=== PATIENT | male | born 1975 | race Caucasian/White ===

== ENCOUNTER 2016-06-10 20:50 | Outpatient (CLI) | payer OTHER ==
[~2016-06-10 20:50] MED LIST: CIPR500T78 PO; DICY10CA12 PO; IBUP800T26 PO; OXYC-12 PO; TMSL.4C PO; TRAM50TA2 PO; ZOLP10TA5 PO
--- OUTSIDE RECORDS SUMMARY | 2016-06-10 21:59 | XMS REPORT | Continuity of Care Document ---
Author Author [facility] Organization [facility] Address Unknown Phone Unavailable Care Team Providers Care [employer] Name Role Phone JAZMINE ORTIZ DO PCP Insurance Providers Payer Name Policy Number Subscriber Name Relationship [employer] [facility] Ppo [id number] Shady Johnston 16 Self / Same As Patient Advance Directives Directive Response Recorded Date/Time Advance Directives No 01/13/14 3:30am Organ Donor No 01/13/14 3:30am Resuscitation Status Full Code 01/13/14 3:30am Problems Medical Problems Problem Onset Date Status Microscopic hematuria Unknown Active Abdominal pain Unknown Active Microscopic hematuria Unknown Active Medications Medication Dose Route Sig Days/Qty Instructions Order Date Discontinued Date Status Tramadol Hcl 1 Tab PO NEEDED 100 Qty 01/13/14 Active Dicyclomine Hcl 10 Mg PO EVERY 6 HOURS 240 Qty 01/13/14 Active Zolpidem Tartrate 1 Tab-Cap PO BEDTIME 30 Qty 01/13/14 Active Ciprofloxacin HCl 500 Mg PO TWICE A DAY 20 Qty 01/13/14 Active Ibuprofen (Motrin) 800 Mg PO q8h PRN PAIN 20 Qty 01/13/14 Active Oxycodone Hcl/Acetaminophen 1 Each PO EVERY 4HRS PRN PAIN 10 Qty Active Tamsulosin HCl 0.4 Mg PO DAILY 10 Qty 01/13/14 Active Social History Social History Problem Response Recorded Date/Time Alcohol Use Denies Use 01/13/2014 3:30am Recreational Drug Use No 01/13/2014 3:30am Recent Foreign Travel No 01/13/2014 3:30am Recent Infectious Disease Exposure No 01/13/2014 3:30am Smoking Status Never a Smoker 01/13/2014 3:30am Do you dip or chew tobacco? No 01/13/2014 3:30am Query Response Start Date Stop Date Smoking Status Never a Smoker Hospital Discharge Instructions No hospital discharge instructions. Plan of Care No plan of care. Functional Status No functional status results. Allergies, Adverse Reactions, Alerts Allergen Type Severity Reaction Status Last Updated No Known Drug Allergies Active 01/13/14 Immunizations No immunization records. Vital Signs Acute Vital Signs Vital Response Date/Time Temperature (Fahrenheit) 97.0 degrees F (97.6 - 99.5) Temperature (Calculated Celsius) 36.98574 degrees C (36.4 - 37.5) Temperature Source Temporal Pulse Rate (adult) 89 bpm (60 - 90) Respiratory Rate 18 bpm (12 - 24) O2 Sat by Pulse Oximetry 99 % (88 - 100) Blood Pressure 148/98 mm Hg Pain Pain Intensity 5 Height (Feet) 6 feet Height (Inches) 1 inches Height (Calculated Centimeters) 185.257017 cm Weight (Pounds) 240 pounds Weight (Calculated Kilograms) 108.913217 kilograms Calculated BMI 31.66 Results Test Source Date Result Interp. Ref. Range Comments Semen Volume January 02, 2007 8:15am 1.5 ML N 1.5-5.0 Sperm % Abnormal Morphology January 02, 2007 8:15am 33 % - Sperm % Normal Morphology January 02, 2007 8:15am 67 % - [employer] HAS REDEFINED WHAT THEYCONSIDER TO BE A NORMAL SPERMATOZOON AND SUBSEQUENTLY SET AN 'EMPERICAL REFERERENCE VALUE OF 30% NORMAL FORMS AND ABOVE NORMAL'; Sperm Count January 02, 2007 8:15am 215 MIL/ML H 60-200 Sperm Motility January 02, 2007 8:15am 78 % - NORMAL IS >60% DEMONSTRATING MEDIUM TO HIGH SPEED FORWARD MOTION. Procedures No known history of procedures. Encounters Encounter Location Date/Time Departed Emergency Room [facility] 01/13/14 3:22am Recent Diagnosis
== END 2016-06-11 07:00 | disposition home or self-care (01) ==
LOC: SLEEP 20:50
PROVIDERS: ATTEND Family Medicine
DX: G47.33 Obstructive sleep apnea (adult) (pediatric) (principal)
CPT/HCPCS: 95811

== ENCOUNTER 2016-12-21 10:52 | Emergency (ER) | payer OTHER ==
[~2016-12-21] VITALS: Ht 185.4 cm; Wt 124.7 kg
--- NOTE | 2016-12-21 11:16 | ED GU-Male ---
General Chief Complaint: -Male Stated Complaint: POSSIBLE KIDNEY STONE Source: patient Exam Limitations: no limitations (SALVATORE KRAMER MD) History of Present Illness Time seen by provider: 11:11 Initial Comments Here with onset of right flank and right lower quadrant abdominal pain this morning on the way to work. He tried to drink a lot of water and that didn't help. Reports he's had similar feeling with previous kidney stone. This is associated with sweating. Denies nausea or vomiting. Timing/Duration: yesterday, getting worse Severity/Quality: moderate, aching Location: right flank Radiation: RLQ, right flank, urethral Activities at Onset: none Sexual Winner History: single partner Modifying Factors: Improves With Other (unable to get comfortable in any position. No exacerbating or relieving factors.) Associated Symptoms: abdominal pain, dysuria, No fever/chills, No nausea/ vomiting (SALVATORE KRAMER MD) Allergies and Home Medications Allergies Coded Allergies: No Known Drug Allergies (Unverified , 01/13/14) Home Medications Ciprofloxacin HCl 500 Mg Tablet, 500 MG PO BID, #14 Ref 0 Prescribed by: ANNABEL MCLEAN on 12/21/16 1320 Hydrocodone/Acetaminophen 1 Each Tablet, 1 EACH PO Q4H PRN for pain, #20 Ref 0 Prescribed by: ANNABEL MCLEAN on 12/21/16 1320 Ondansetron 8 Mg Tab.rapdis, 8 MG PO Q6H PRN for NAUSEA/VOMITING-1ST LINE, #10 Ref 0 Prescribed by: ANNABEL MCLEAN on 12/21/16 1320 Phenazopyridine HCl 200 Mg Tablet, 1 TAB PO Q8H PRN for SPASMS, #14 Ref 0 Prescribed by: ANNABEL MCLEAN on 12/21/16 1320 Sertraline HCl 100 Mg Tablet, (Reported) Tamsulosin HCl 0.4 Mg Cap, 0.4 MG PO DAILY, #10 Ref 0 Prescribed by: ANNABEL MCLEAN on 12/21/16 1320 Tramadol Hcl 50 Mg Tab, 1 TAB PO PRN, #100 (Reported) Zolpidem Tartrate 10 Mg Tablet, 1 TAB-CAP PO HS, #30 (Reported) Constitutional: see HPI, diaphoresis, No weakness EENTM: no symptoms reported Respiratory: no symptoms reported Cardiovascular: no symptoms reported Gastrointestinal: see HPI, abdominal pain, No nausea, No vomiting Genitourinary: burning, dysuria, frequency Musculoskeletal: no symptoms reported Skin: no symptoms reported Psychiatric/Neurological: No Symptoms Reported (SALVATORE KRAMER MD) Past Rrbtuwp-[id number]-Hsohqz Hx Patient Social History Alcohol Use: Denies Use Recreational Drug Use: No Smoking Status: Never a Smoker Recent Foreign Travel: No Contact w/Someone Who Travel: No (SALVATORE KRAMER MD) Surgeries History of Surgeries: Yes Surgeries: Orthopedic (SALVATORE KRAMER MD) Respiratory History of Respiratory Disorde: No (SALVATORE KRAMER MD) Cardiovascular History of Cardiac Disorders: No (SALVATORE KRAMER MD) Neurological History of Neurological Disord: No (SALVATORE KRAMER MD) Genitourinary History of Genitourinary Disor: Yes Genitourinary Disorders: Kidney Stones (SALVATORE KRAMER MD) Gastrointestinal History of Gastrointestinal Di: No Gastrointestinal Disorders: Irritable Bowel (SALVATORE KRAMER MD) Musculoskeletal History of Musculoskeletal Dis: Yes Musculoskeletal Disorders: Back Injury (SALVATORE KRAMER MD) Cancer History of Cancer: No (SALVATORE KRAMER MD) Reviewed Nursing Assessment Reviewed/Agree w Nursing PMH: Yes (SALVATORE KRAMER MD) Physical Exam Vital Signs Vital Sign - Last 12Hours 12/21/16 11:03 Temp 99.0 Pulse 78 Resp 18 B/P (MAP) 176/101 (ANNABEL MCLEAN PA) Vital Signs Capillary Refill : (SALVATORE KRAMER MD) General Appearance: WD/WN, no apparent distress HEENT: PERRL/EOMI, pharynx normal Neck: full range of motion, supple Cardiovascular: regular rate, rhythm, no murmur Respiratory: lungs clear, normal breath sounds Gastrointestinal: soft, tenderness (mild right flank and right lower quadrant) Back: no vertebral tenderness, CVA tenderness (R), No CVA tenderness (L) Neurologic/Psychiatric: alert, oriented x 3 Skin: normal color, warm/dry (SALVATORE KRAMER MD) Progress/Results/Core Measures Results/Orders Lab Results Laboratory Tests Test 12/21/16 11:03 12/21/16 11:17 Range/Units Urine Color YELLOW Urine Clarity SLIGHTLY CLOUDY Urine pH 5 5-9 Urine Specific [place] 1.030 H 1.016-1.022 Urine Protein 2+ H NEGATIVE Urine Glucose (UA) NEGATIVE NEGATIVE Urine Ketones NEGATIVE NEGATIVE Urine Nitrite NEGATIVE NEGATIVE Urine Bilirubin 1+ H NEGATIVE Urine Urobilinogen 1 NORMAL MG/DL Urine Leukocyte Esterase 1+ H NEGATIVE Urine RBC (Auto) 1+ H NEGATIVE Urine RBC 0-2 /HPF Urine WBC RARE /HPF Urine Crystals PRESENT H /LPF Urine Amorphous Sediment MOD TAMIE URATES H /LPF Urine Bacteria NEGATIVE /HPF Urine Casts NONE /LPF Urine Mucus NEGATIVE /LPF Urine Culture Indicated NO White Blood Count 14.1 H 4.3-11.0 10^3/uL Red Blood Count 5.26 4.35-5.85 10^6/uL Hemoglobin 14.2 13.3-17.7 G/DL Hematocrit 43 40-54 % Mean Corpuscular Volume 82 80-99 FL Mean Corpuscular Hemoglobin 27 25-34 PG Mean Corpuscular Hemoglobin Concent 33 32-36 G/DL Red Cell Distribution Width 13.9 10.0-14.5 % Platelet Count 315 130-400 10^3/uL Mean Platelet Volume 10.9 H 7.4-10.4 FL Neutrophils (%) (Auto) 83 H 42-75 % Lymphocytes (%) (Auto) 11 L 12-44 % Monocytes (%) (Auto) 6 0-12 % Eosinophils (%) (Auto) 0 0-10 % Basophils (%) (Auto) 0 0-10 % Neutrophils # (Auto) 11.7 H 1.8-7.8 X 10^3 Lymphocytes # (Auto) 1.6 1.0-4.0 X 10^3 Monocytes # (Auto) 0.8 0.0-1.0 X 10^3 Eosinophils # (Auto) 0.1 0.0-0.3 10^3/uL Basophils # (Auto) 0.0 0.0-0.1 10^3/uL Neutrophils % (Manual) 84 % Lymphocytes % (Manual) 12 % Monocytes % (Manual) 2 % Eosinophils % (Manual) 0 % Basophils % (Manual) 0 % Band Neutrophils 2 % Blood Morphology Comment NORMAL Sodium Level 144 135-145 MMOL/L Potassium Level 3.5 L 3.6-5.0 MMOL/L Chloride Level 108 H 98-107 MMOL/L Carbon Dioxide Level 23 21-32 MMOL/L Anion Gap 13 5-14 MMOL/L Blood Urea Nitrogen 9 7-18 MG/DL Creatinine 1.29 0.60-1.30 MG/DL Estimat Glomerular Filtration Rate > 60 BUN/Creatinine Ratio 7 Glucose Level 119 H 70-105 MG/DL Calcium Level 9.2 8.5-10.1 MG/DL Total Bilirubin 0.5 0.1-1.0 MG/DL Aspartate Amino Transf (AST/SGOT) 20 5-34 U/L Alanine Aminotransferase (ALT/SGPT) 23 0-55 U/L Alkaline Phosphatase 94 40-136 U/L Total Protein 7.2 6.4-8.2 GM/DL Albumin 4.4 3.2-4.5 GM/DL (ANNABEL MCLEAN) My Orders Orders - ANNABEL MCLEAN Abdomen/Kub 1view (12/21/16 13:14) (ANNABEL MCLEAN) Medications Given in ED Current Medications Medications Dose Ordered Sig/Stephanie Route Start Time Stop Time Status Last Admin Dose Admin Sodium Chloride 1,000 ml @ 0 mls/hr Q0M ONCE IV 12/21/16 11:19 12/21/16 11:21 DC 12/21/16 11:24 1,000 MLS/HR (ANNABEL MCLEAN) Vital Signs/I&O Vital Sign - Last 12Hours 12/21/16 11:03 Temp 99.0 Pulse 78 Resp 18 B/P (MAP) 176/101 Intake and Output 12/22/16 00:00 Intake Total 1000 ml Balance 1000 ml (ANNABEL MCLEAN) Progress Note : Progress Note Seen and evaluated. IV, labs, UA, normal saline 1 L bolus, fentanyl 75 g IV and Toradol 30 mg IV ordered. Monitor patient. (SALVATORE KRAMER MD) Diagnostic Imaging Diagonstic Imaging: CT Plain Films/CT/US/NM/MRI: abdomen, pelvis Comments FINDINGS: There is a mild to moderate hiatal hernia present. The unenhanced images of the liver and spleen reveal no focal abnormality. There is no evidence of pancreatic or adrenal gland lesion. Occasional 1 cm lymph nodes are seen adjacent to the gastroesophageal junction. There is no evidence of gallbladder or pancreatic lesion. The adrenal glands and left kidney are unremarkable. There is no evidence of renal mass or stone; however, there is mild right hydronephrosis and mild right hydroureter to the level of an approximately 0.3 cm calculus at the right ureterovesical junction. There are calcified phleboliths seen in the pelvis bilaterally. No free fluid or localized inflammation is identified. IMPRESSION: There is at least a partially obstructing 0.3 cm right ureterovesical junction calculus. There is mild associated right hydronephrosis and hydroureter. Note is made of a small hiatal hernia and a small probable reactive adjacent lymph node. Dictated on workstation # [id number] Reviewed: Reviewed by Me (radiology report reviewed by me) Diagonstic Imaging: Xray Plain Films/CT/US/NM/MRI: abdomen Reviewed: Reviewed by Me (radiology report reviewed by me) (ANNABEL MCLEAN) Departure Communication Progress Notes Patient seen and evaluated with Dr. Kramer. Patient is noted to have a partially obstructing 3 mm stone at the UVJ. A KUB was obtained for baseline serial radiographs to follow stone resolution. Patient to f/u with his PCP or Dr. Rivas for recheck Monday or Monday. All laboratory and diagnostic findings were discussed with the patient. Patient reports pain is starting to increase, but does not want anything for pain at this time. Plan for discharge to home. (ANNABEL MCLEAN) Impression Impression: Primary Impression: Left ureteral stone Disposition: 01 HOME, SELF-CARE Condition: Improved Departure-Patient Inst. Decision time for Depature: 13:14 (ANNABEL MCLEAN) Referrals: JAZMINE ORTIZ DO (PCP/Family) Primary Care Physician FRIEDA RIVAS MD Patient Instructions: Kidney Stones (DC) Add. Discharge Instructions: All discharge instructions reviewed with patient and/or family. Voiced understanding. Medications as instructed. Drink plenty of fluids. Ibuprofen 800 mg by mouth every 8 hours as needed for pain. Strain all urines. Follow- up with your primary care physician or Dr. Rivas as an outpatient for recheck and repeat x-ray Monday or Monday. Call for appointment time. Return to the emergency department for worsened pain, fever, inability to urinate, blood in the urine, or any other concerns. Scripts Phenazopyridine HCl (Pyridium) 200 Mg Tablet 1 TAB PO Q8H Y for SPASMS, #14 TAB 0 Refills Prov: ANNABEL MCLEAN 12/21/16 Ciprofloxacin HCl (Ciprofloxacin HCl) 500 Mg Tablet 500 MG PO BID, #14 TAB 0 Refills Prov: ANNABEL MCLEAN 12/21/16 Tamsulosin HCl (Flomax) 0.4 Mg Cap 0.4 MG PO DAILY, #10 CAP 0 Refills Prov: ANNABEL MCLEAN 12/21/16 Ondansetron (Ondansetron Odt) 8 Mg Tab.rapdis 8 MG PO Q6H Y for NAUSEA/VOMITING-1ST LINE, #10 TAB 0 Refills Prov: ANNABEL MCLEAN 12/21/16 Hydrocodone/Acetaminophen (Hydrocodon-Acetaminophn 10-325) 1 Each Tablet 1 EACH PO Q4H Y for pain, #20 TAB 0 Refills Prov: ANNABEL MCLEAN 12/21/16 Work/School Note: Work Release Form Date Seen in the Emergency Department: Dec 21, 2016 Return to Work: Dec 22, 2016 Restrictions: No Restrictions SALVATORE KRAMER MD Dec 21, 2016 11:16 ANNABEL MCLEAN Dec 21, 2016 13:14
[2016-12-21] MEDS ORDERED: NS IV 1000 ML 1,000 ML IV ONE (11:19)
[2016-12-21] MEDS ORDERED: KETOROLAC 30 MG/ML VIAL IVP STA (11:19)
[2016-12-21] MEDS ORDERED: fentaNYL INJECTION 100 MCG/2 ML AMP IVP STA (11:19)
[2016-12-21 11:26] LABS: BASOPHILS % (AUTO) 0 % (0-10); EOSINOPHILS # (AUTO) 0.1 10^3/uL (0.0-0.3); EOSINOPHILS % (AUTO) 0 % (0-10); LYMPHOCYTES # (AUTO) 1.6 X 10^3 (1.0-4.0); LYMPHOCYTES % (AUTO) 11 % (12-44); MEAN CORPUSCULAR HEMOGLOBIN 27 PG (25-34); MEAN CORPUSCULAR HGB CONC 33 G/DL (32-36); MEAN CORPUSCULAR VOLUME 82 FL (80-99); MEAN PLATELET VOLUME 10.9 FL (7.4-10.4); MONOCYTES # (AUTO) 0.8 X 10^3 (0.0-1.0); MONOCYTES % (AUTO) 6 % (0-12); NEUTROPHILS # (AUTO) 11.7 X 10^3 (1.8-7.8); NEUTROPHILS % (AUTO) 83 % (42-75); PLATELET COUNT 315 10^3/uL (130-400); RED BLOOD COUNT 5.26 10^6/uL (4.35-5.85); RED CELL DISTRIBUTION WIDTH 13.9 % (10.0-14.5); WHITE BLOOD COUNT 14.1 10^3/uL (4.3-11.0)
[2016-12-21 11:35] LABS: KETONES,URINE NEGATIVE (NEGATIVE); LEUKOCYTE ESTERASE ,URINE 1+ (NEGATIVE); NITRITE,URINE NEGATIVE (NEGATIVE); PH,URINE 5 (5-9); PROTEIN,URINE 2+ (NEGATIVE); UROBILINOGEN,URINE 1 MG/DL (NORMAL)
[2016-12-21 11:41] LABS: BAND NEUTROPHILS 2 %; BASOPHILS % (MANUAL) 0 %; EOSINOPHILS % (MANUAL) 0 %; LYMPHOCYTES % (MANUAL) 12 %; NEUTROPHILS % (MANUAL) 84 %
[2016-12-21 11:45] LABS: BILIRUBIN,URINE 1+ (NEGATIVE); WBC,URINE RARE /HPF
[2016-12-21 11:46] LABS: ALANINE AMINOTRANSFERASE 23 U/L (0-55); ALBUMIN 4.4 GM/DL (3.2-4.5); ANION GAP 13 MMOL/L (5-14); ASPARTATE AMINO TRANSFERASE 20 U/L (5-34); BILIRUBIN,TOTAL 0.5 MG/DL (0.1-1.0); BLOOD UREA NITROGEN 9 MG/DL (7-18); BUN/CREATININE RATIO 7; CALCIUM 9.2 MG/DL (8.5-10.1); CARBON DIOXIDE 23 MMOL/L (21-32); CHLORIDE 108 MMOL/L (98-107); CREATININE SERUM 1.29 MG/DL (0.60-1.30); GFR ESTIMATED > 60; GLUCOSE 119 MG/DL (70-105); POTASSIUM 3.5 MMOL/L (3.6-5.0); SODIUM 144 MMOL/L (135-145); TOTAL PROTEIN 7.2 GM/DL (6.4-8.2)
[2016-12-21] MEDS ORDERED: SERT100T8 (11:47)
--- NOTE | 2016-12-21 12:56 | Diagnostic Imaging Report ---
PROCEDURE: CT urinary tract, rule out kidney stone. TECHNIQUE: Multiple contiguous axial images were obtained through the abdomen and pelvis without the use of intravenous contrast. INDICATION: Low back pain. FINDINGS: There is a mild to moderate hiatal hernia present. The unenhanced images of the liver and spleen reveal no focal abnormality. There is no evidence of pancreatic or adrenal gland lesion. Occasional 1 cm lymph nodes are seen adjacent to the gastroesophageal junction. There is no evidence of gallbladder or pancreatic lesion. The adrenal glands and left kidney are unremarkable. There is no evidence of renal mass or stone; however, there is mild right hydronephrosis and mild right hydroureter to the level of an approximately 0.3 cm calculus at the right ureterovesical junction. There are calcified phleboliths seen in the pelvis bilaterally. No free fluid or localized inflammation is identified. IMPRESSION: There is at least a partially obstructing 0.3 cm right ureterovesical junction calculus. There is mild associated right hydronephrosis and hydroureter. Note is made of a small hiatal hernia and a small probable reactive adjacent lymph node. Dictated by: Dictated on workstation # [id number]
[2016-12-21] MEDS ORDERED: PHEN-640 PO (13:20)
[2016-12-21] MEDS ORDERED: CIPR500T4 PO (13:20)
[2016-12-21] MEDS ORDERED: TAMS0.4C98 PO (13:20)
[2016-12-21] MEDS ORDERED: HYDR-3820 PO (13:20)
[2016-12-21] MEDS ORDERED: ONDA8TAB13 PO (13:20)
--- NOTE | 2016-12-21 13:43 | Diagnostic Imaging Report ---
INDICATION: Right urinary tract calculus. Supine images of the abdomen are obtained. Comparison is made to study of 01/13/2014. There are bilateral calcified phleboliths in the pelvis. There is a new calcification measuring 0.3 cm in diameter to the right of midline at the level of the urinary bladder which may represent distal ureteric stone. No other pathologic abdominal calcification is identified. There is no evidence of bowel obstruction or abnormal gas collection. IMPRESSION: A 0.3-cm calcification is now present to the right of midline in the pelvis and likely represents calculus near the ureterovesical junction. Dictated by: Dictated on workstation # [id number]
[2016-12-21 13:55] VITALS: BP 133/92
== END 2016-12-21 14:00 | disposition home or self-care (01) ==
LOC: EDUNIT# 10:52 → ER 10:56
DX: N20.1 Calculus of ureter (principal); Z87.442 Personal history of urinary calculi; Z87.19 Personal history of other diseases of the digestive system
CPT/HCPCS: 36415; 74000; 74176; 80053; 81000; 85007; 85025; 85027; 96361; 96374; 96375

== ENCOUNTER → 2020-02-01 | Outpatient (CLI) | payer OTHER ==
[~2020-02-01] MED LIST changes: +ACHYD1T PO; +CIPR500T4 PO; +ONDA8TAB13 PO; +PHEN-640 PO; +SERT100T8
--- NOTE | 2020-02-01 19:16 | Diagnostic Imaging Report ---
INDICATION: Cervical radiculopathy. TECHNIQUE: Lateral, lateral flexion and extension, AP and odontoid views of the cervical spine, 5:19 PM. CORRELATION STUDY: None. FINDINGS: There is straightening of the normal cervical lordosis. There are postoperative changes of a previous anterior cervical decompression and fusion with plate and screws at the C5-C6 level with bony fusion across the disc space. Trace anterolisthesis of C7 on T1 appears relatively static. With flexion and extension, there are generalized limitations and range of motion. No evidence for abnormal subluxation. The cervical vertebral body heights overall demonstrate minimal anterior wedging at C3 and C4. No acute appearing compression deformity. The odontoid is largely obscured. Lateral masses of C1 and C2 appear to be unremarkable. IMPRESSION: 1. Negative for acute findings of the cervical spine. Prior anterior cervical decompression and fusion at the C5-C6 level. 2. Limitations in range of motion. 3. No suggestion for abnormal subluxation. Dictated by: Dictated on workstation # [id number]
== END ==
LOC: RAD 16:54
PROVIDERS: ATTEND Family Medicine
DX: M54.12 Radiculopathy, cervical region (principal); Z98.1 Arthrodesis status
CPT/HCPCS: 72050

== ENCOUNTER 2021-06-23 16:10 | Emergency (ER) | payer OTHER ==
[~2021-06-23] VITALS: Ht 185 cm; Wt 140.6 kg
[2021-06-23 16:10] VITALS: BP 114/87
[~2021-06-23 16:10] MED LIST changes: -CIPR500T4 PO; +CIPR500T5 PO; +SERT-414; -SERT100T8
[2021-06-23] MEDS ORDERED: morphine INJ 10 MG/ML 1ML (SYR OR VIAL) IV STA (16:19)
--- NOTE | 2021-06-23 16:23 | ED Chest Pain ---
General Stated Complaint: CHEST PAIN Source: patient Exam Limitations: no limitations (JASS COTTO) History of Present Illness Date Seen by Provider: Jun 23, 2021 Time Seen by Provider: 16:21 Initial Comments Patient is a 45-year-old male who presents ED with left-sided chest pain. Symptoms started 30 minutes ago while walking out of his work. Patient states he started driving and started having this left-sided chest pain. Reports dull achy pain in the left posterior shoulder which is chronic. Chronic cervical radiculopathy to left arm. No cough, shortness of breath, vomiting, diarrhea. No recent travels or surgeries. History of hypertension, high cholesterol and family cardiac history. Denies of any recent travels or surgeries, fever. Denies similar pain in to the left-sided chest. States he may be dehydrated. Denies of any exacerbating pain with exertion, deep inspiration. (JASS COTTO) Allergies and Home Medications Allergies Coded Allergies: No Known Drug Allergies (Unverified , 01/13/14) Patient Home Medication List Home Medication List Reviewed: Yes (BRANDON ERNST MD) Ciprofloxacin HCl (Ciprofloxacin HCl) 500 Mg Tablet, 500 MG PO BID Prescribed by: ANNABEL MCLEAN on 12/21/16 1320 Hydrocodone Bit/Acetaminophen (HYDROcodone/APAP 10/325 TABLET) 1 Each Tablet, 1 EACH PO Q4H PRN for pain Prescribed by: ANNABEL MCLEAN on 12/21/16 1320 Ondansetron (Ondansetron Odt) 8 Mg Tab.rapdis, 8 MG PO Q6H PRN for NAUSEA/VOMITING-1ST LINE Prescribed by: ANNABEL MCLEAN on 12/21/16 1320 Phenazopyridine HCl (Pyridium) 200 Mg Tablet, 1 TAB PO Q8H PRN for SPASMS Prescribed by: ANNABEL MCLEAN on 12/21/16 1320 Sertraline HCl (Sertraline HCl) 100 Mg Tablet, (Reported) Entered as Reported by: CHYNA MIDDLETON on 12/21/16 1147 Tamsulosin HCl (Flomax) 0.4 Mg Cap, 0.4 MG PO DAILY Prescribed by: ANNABEL MCLEAN on 12/21/16 1320 Tramadol Hcl (Rx-Ultram) 50 Mg Tab, 1 TAB PO PRN, (Reported) Entered as Reported by: PEPITO HAILE on 01/13/14328 Zolpidem Tartrate (Zolpidem Tartrate) 10 Mg Tablet, 1 TAB-CAP PO HS, (Reported) Entered as Reported by: PEPITO HAILE on 01/13/14328 Review of Systems Review of Systems Constitutional: No chills, No diaphoresis, No dizziness, No fever EENTM: No Ear Drainage, No Ear Pain, No Mouth Pain, No Mouth Swelling Respiratory: Denies Cough, Denies Orthopnea Cardiovascular: Chest Pain; Denies Irregular Heart Rate Gastrointestinal: Denies Abdomen Distended, Denies Abdominal Pain, Denies Diarrhea, Denies Nausea, Denies Vomiting Genitourinary: Denies Burning, Denies Frequency, Denies Flank Pain Musculoskeletal: No back pain, No joint pain, No muscle pain, No muscle stiffness Skin: No change in color, No change in hair/nails Psychiatric/Neurological: Denies Anxiety, Denies Depressed (JASS COTTO) All Other Systems Reviewed Negative Unless Noted: Yes (JASS COTTO) Past Qzvfjlc-Nmfyeg-Inmkho Hx Past Medical History Surgeries: Yes Orthopedic Respiratory: No Cardiac: No Neurological: No Genitourinary: Yes Kidney Stones Gastrointestinal: No Irritable Bowel Musculoskeletal: Yes Back Injury Endocrine: No Cancer: No Psychosocial: No Integumentary: No Blood Disorders: No (JASS COTTO) Physical Exam Vital Signs Vital Signs - First Documented 06/23/21 16:10 Temp 36.4 Pulse 70 Resp 16 B/P (MAP) 114/87 (96) Pulse Ox 97 (BRANDON ERNST MD) Vital Signs Capillary Refill : (JASS COTTO) Height, Weight, BMI Height: 6'1.00" Weight: 275lbs. oz. 124.385674ws; BMI Method:Stated General Appearance: No Apparent Distress, WD/WN HEENT: PERRL/EOMI, TMs Normal, Normal ENT Inspection Neck: Full Range of Motion, Normal Inspection, Supple Respiratory: Chest Non Tender, Lungs Clear, Normal Breath Sounds, No Accessory Muscle Use, No Respiratory Distress Cardiovascular: Regular Rate, Rhythm, No Edema, No Gallop, No JVD, No Murmur Gastrointestinal: Normal Bowel Sounds, No Pulsatile Mass, Non Tender Extremity: Normal Capillary Refill, Normal Inspection, Normal Range of Motion Neurologic/Psychiatric: Alert, Oriented x3, No Motor/Sensory Deficits, Normal Mood/Affect, horse race timer II-XII Norm as Tested (JASS COTTO) Progress/Results/Core Measures Results/Orders Lab Results Laboratory Tests Test 06/23/21 16:23 06/23/21 19:15 Range/Units White Blood Count 12.3 H 4.3-11.0 10^3/uL Red Blood Count 5.17 4.30-5.52 10^6/uL Hemoglobin 14.4 13.3-17.7 g/dL Hematocrit 45 40-54 % Mean Corpuscular Volume 87 80-99 fL Mean Corpuscular Hemoglobin 28 25-34 pg Mean Corpuscular Hemoglobin Concent 32 32-36 g/dL Red Cell Distribution Width 13.3 10.0-14.5 % Platelet Count 311 130-400 10^3/uL Mean Platelet Volume 10.7 9.0-12.2 fL Immature Granulocyte % (Auto) 0 % Neutrophils (%) (Auto) 65 42-75 % Lymphocytes (%) (Auto) 24 12-44 % Monocytes (%) (Auto) 7 0-12 % Eosinophils (%) (Auto) 3 0-10 % Basophils (%) (Auto) 1 0-10 % Neutrophils # (Auto) 8.0 H 1.8-7.8 10^3/uL Lymphocytes # (Auto) 2.9 1.0-4.0 10^3/uL Monocytes # (Auto) 0.9 0.0-1.0 10^3/uL Eosinophils # (Auto) 0.4 H 0.0-0.3 10^3/uL Basophils # (Auto) 0.1 0.0-0.1 10^3/uL Immature Granulocyte # (Auto) 0.0 0.0-0.1 10^3/uL Prothrombin Time 12.3 12.2-14.7 SEC INR Comment 0.9 0.8-1.4 Activated Partial Thromboplast Time 28 24-35 SEC D-Dimer 0.18 0.00-0.49 UG/ML Sodium Level 141 135-145 MMOL/L Potassium Level 4.1 3.6-5.0 MMOL/L Chloride Level 105 98-107 MMOL/L Carbon Dioxide Level 23 21-32 MMOL/L Anion Gap 13 5-14 MMOL/L Blood Urea Nitrogen 9 7-18 MG/DL Creatinine 1.09 0.60-1.30 MG/DL Estimat Glomerular Filtration Rate 84 BUN/Creatinine Ratio 8 Glucose Level 93 70-105 MG/DL Calcium Level 9.0 8.5-10.1 MG/DL Corrected Calcium 8.7 8.5-10.1 MG/DL Magnesium Level 2.0 1.6-2.4 MG/DL Total Bilirubin 0.5 0.1-1.0 MG/DL Aspartate Amino Transf (AST/SGOT) 33 5-34 U/L Alanine Aminotransferase (ALT/SGPT) 69 H 0-55 U/L Alkaline Phosphatase 122 40-136 U/L Creatine Kinase MB 2.2 <6.6 NG/ML Myoglobin 83.4 10.0-92.0 NG/ML Troponin I < 0.028 < 0.028 <0.028 NG/ML B-Type Natriuretic Peptide < 10.0 <100.0 PG/ML Total Protein 7.5 6.4-8.2 GM/DL Albumin 4.4 3.2-4.5 GM/DL (BRANDON ERNST MD) Medications Given in ED Current Medications Medications Dose Ordered Sig/Stephanie Route Start Time Stop Time Status Last Admin Dose Admin Aspirin 324 mg ONCE ONCE PO 06/23/21 16:30 06/23/21 16:31 DC 06/23/21 16:46 324 MG (BRANDON ERNST MD) Vital Signs/I&O 06/23/21 16:10 Temp 36.4 Pulse 70 Resp 16 B/P (MAP) 114/87 (96) Pulse Ox 97 (BRANDON ERNST MD) Comment Sinus rhythm, 66 bpm, QRS duration 99 MS, QTc 426 MS. (JASS COTTO) Departure Communication (Admissions) Patient presents ED with left-sided chest pain. Patient with a longstanding history of cervical radiculopathy. Unclear if this is secondary to that pain however the only difference is the pain to the left side chest which is different. Family cardiac history. History of hypertension. EKG normal sinus rhythm without evidence of ST elevation, depression, A. fib or a flutter. Initial troponin negative. Negative D-dimer. Chest x-ray negative for pneumonia, pneumothorax. Lab work otherwise unremarkable beside wbc 12 nonspecific. Patient Was given aspirin and morphine with improvement of pain. No cough, fever, vomiting or diarrhea. Patient was observed for 3 hours with a second troponin which was negative. Patient feeling much better at this time. Patient with a heart score of 3. Patient requesting be discharged. Strongly recommend following up with PCP and 2 to 3 days for reevaluation. If worsening pain return back to ED for cardiac workup. (JASS COTTO) Impression Primary Impression: Chest pain Disposition: HOME, SELF-CARE Condition: Stable Departure-Patient Inst. Decision time for Depature: 19:51 (JASS COTTO) Referrals: JAZMINE ORTIZ DO (PCP/Family) Primary Care Physician Patient Instructions: Chest Pain, Adult ED ATTENDING PHYSICIAN NOTE: I was physically present as attending physician in the emergency department during the care of this patient, but I was not directly involved in the decision making or delivery of care for this patient. (BRANDON ERNST MD) JASS COTTO Jun 23, 2021 16:23 BRANDON ERNST MD Jun 23, 2021 21:01
[2021-06-23] MEDS ORDERED: ASPIRIN 81 MG CHEW (CHILDREN'S ASA) PO ONE (16:30)
[2021-06-23 16:33] LABS: BASOPHILS # (AUTO) 0.1 10^3/uL (0.0-0.1); BASOPHILS % (AUTO) 1 % (0-10); EOSINOPHILS # (AUTO) 0.4 10^3/uL (0.0-0.3); EOSINOPHILS % (AUTO) 3 % (0-10); HEMATOCRIT 45 % (40-54); HEMOGLOBIN 14.4 g/dL (13.3-17.7); LYMPHOCYTES # (AUTO) 2.9 10^3/uL (1.0-4.0); LYMPHOCYTES % (AUTO) 24 % (12-44); MEAN CORPUSCULAR HEMOGLOBIN 28 pg (25-34); MEAN CORPUSCULAR HGB CONC 32 g/dL (32-36); MEAN CORPUSCULAR VOLUME 87 fL (80-99); MEAN PLATELET VOLUME 10.7 fL (9.0-12.2); MONOCYTES # (AUTO) 0.9 10^3/uL (0.0-1.0); MONOCYTES % (AUTO) 7 % (0-12); NEUTROPHILS % (AUTO) 65 % (42-75); PLATELET COUNT 311 10^3/uL (130-400); WHITE BLOOD COUNT 12.3 10^3/uL (4.3-11.0)
--- NOTE | 2021-06-23 16:46 | Diagnostic Imaging Report ---
INDICATION: Chest pain. EXAMINATION: Portable chest at 04:25 p.m. FINDINGS: Heart size and pulmonary vascularity are normal. Lungs are clear. There are no effusions or pneumothoraces. IMPRESSION: No acute abnormalities in the chest. Dictated by: Dictated on workstation # [id number]
[2021-06-23 16:48] LABS: INR 0.9 (0.8-1.4); PROTHROMBIN TIME PATIENT 12.3 SEC (12.2-14.7)
[2021-06-23 17:09] LABS: ALBUMIN 4.4 GM/DL (3.2-4.5); POTASSIUM 4.1 MMOL/L (3.6-5.0)
[2021-06-23 17:11] LABS: TOTAL PROTEIN 7.5 GM/DL (6.4-8.2)
[2021-06-23 17:13] LABS: BILIRUBIN,TOTAL 0.5 MG/DL (0.1-1.0)
[2021-06-23 17:15] LABS: CREATININE SERUM 1.09 MG/DL (0.60-1.30)
[2021-06-23 17:25] LABS: CREATINE KINASE MB 2.2 NG/ML (<6.6)
== END 2021-06-23 20:10 | disposition home or self-care (01) ==
LOC: EDUNIT# 16:10 → ER 16:11
DX: R07.9 Chest pain, unspecified (principal); M54.12 Radiculopathy, cervical region
CPT/HCPCS: 36415; 71045; 80053; 82553; 83735; 83874; 83880; 84484; 85025; 85379; 85610; 85730; 93005; 93041

== ENCOUNTER → 2021-07-09 | Outpatient (CLI) | payer OTHER | LOC: CARD 09:00 | PROVIDERS: ATTEND Family Medicine | DX: I51.7 Cardiomegaly (principal); I35.1 Nonrheumatic aortic (valve) insufficiency | CPT/HCPCS: 93306 ==

== ENCOUNTER → 2021-08-16 | Outpatient (CLI) | payer OTHER ==
[2021-08-16 10:11] VITALS: BP 129/68
--- NOTE | 2021-08-18 15:58 | Cardiology Stress Test Report ---
Stress Test Report Date of Procedure/Referring: Date of Procedure: Aug 16, 2021 PCP Adelaida Garnett DO Admitting Physician Adelaida Garnett DO Indications: CP Baseline Heart Rate: 71 Baseline Blood Pressure: Blood Pressure Systolic: 129 Blood Pressure Diastolic: 68 Baseline EKG: Baseline EKG: NSR Summary/Conclusion: Summary: In summary, the patient started exercising with a baseline heart rate, blood pressure and EKG mentioned above Patient was able to exercise for a total of 5 minutes on Eder protocol, METs 7 Maximum heart rate 153 Maximum blood pressure 199/68 Stress EKG, Minimal nondiagnostic changes Recovery EKG , Return to baseline Conclusion: 1. Good exercise tolerance for a total of 5 minutes on Eder protocol, 7 METs, achieving 88 percent of maximum expected heart rate 2. Minimal nondiagnostic EKG changes with exercise returned to baseline during recovery 3. Occasional PVCs noted at peak stress level resolved during recovery 4. Appropriate heart rate response to exercise with hypertensive response to exercise with peak blood pressure 199/68 returned to baseline during recovery Copy Copies To 1: ADELAIDA GARNETT BASHAR J MD Aug 18, 2021 15:58
== END ==
LOC: CARD 10:30
PROVIDERS: ATTEND Family Medicine
DX: R07.9 Chest pain, unspecified (principal)
CPT/HCPCS: 93017